=== PATIENT | male | born 1940 | race Caucasian/White ===

== ENCOUNTER 2017-03-27 19:03 | Inpatient (IN) | payer MEDICARE, OTHER ==
[2017-03-28] MEDS: SODIUM CHLORIDE 0.9% 1L BAG IV* (00:15)
[2017-03-28 00:18] LABS: ADD MAN DIFF? NO
[2017-03-28 00:20] LABS: WHITE BLOOD COUNT 11.8 10^3/ul (4.8-10.8)
[2017-03-28 00:20] LABS: BASOPHILS % 0.2 % (0.0-2.0); HEMATOCRIT 35.6 % (42.0-52.0); LYMPHOCYTES % 8.4 % (15.0-51.0); MEAN CORPUSCULAR HEMOGLOBIN 32.3 pg (29.0-33.0); MEAN CORPUSCULAR HGB CONC 33.7 g/dl (32.0-37.0); MEAN PLATELET VOLUME 10.4 fl (7.4-10.4); MONOCYTE # 0.8 10^3/ul (0.3-0.9); MONOCYTES % 6.8 % (0.0-11.0); NEUTROPHIL # 9.9 10^3/ul (1.6-7.5); PLATELET COUNT 120 10^3/UL (140-415); RED BLOOD COUNT 3.71 10^6/ul (4.70-6.10); RED CELL DISTRIBUTION WIDTH 13.2 % (11.5-14.5)
[2017-03-28 00:49] LABS: PARTIAL THROMBOPLASTIN TIME 30.9 Sec (25.0-35.0); PROTIME 14.4 Sec (11.9-14.9); PT RATIO 1.1
[2017-03-28 00:56] LABS: LACTIC ACID 1.9 mmol/L (0.5-2.0)
[2017-03-28 00:58] LABS: ALANINE AMINOTRANSFERASE 30 IU/L (13-69); ALBUMIN 4.3 g/dl (3.3-4.9); ALBUMIN/GLOBULIN RATIO 1.34; ALKALINE PHOSPHATASE 71 IU/L (42-121); ANION GAP 16 (8-16); ASPARTATE AMINO TRANSFERASE 53 IU/L (15-46); BILIRUBIN,INDIRECT 0.6 mg/dl (0-1.1); BILIRUBIN,TOTAL 0.6 mg/dl (0.2-1.3); BLOOD UREA NITROGEN 27 mg/dl (7-20); CALCIUM 9.4 mg/dl (8.4-10.2); CARBON DIOXIDE 23 mmol/L (21-31); CHLORIDE 101 mmol/L (97-110); CREATININE 1.51 mg/dl (0.61-1.24); GLUCOSE 220 mg/dl (70-220); POTASSIUM 4.2 mmol/L (3.5-5.1); SODIUM 136 mmol/L (135-144); TOTAL PROTEIN 7.5 g/dl (6.1-8.1)
[2017-03-28 02:24] LABS: LACTIC ACID 1.1 mmol/L (0.5-2.0)
[2017-03-28] MEDS ORDERED: ALBUTEROL/IPRATROPIUM (NEB) 3 ML AMP HHN (05:00)
[2017-03-28] MEDS ORDERED: morphine 2 MG INJ IV (05:00)
[2017-03-28] MEDS ORDERED: NACL 0.9% 3 ML SYG IV (05:00)
[2017-03-28] MEDS ORDERED: DOCUSATE SODIUM 100 MG CAP PO (05:00)
[2017-03-28] MEDS ORDERED: ONDANSETRON 4 MG INJ IV (05:00)
[2017-03-28] MEDS ORDERED: NITROGLYCERIN (SL) 0.4 MG TAB SL (05:00)
[2017-03-28] MEDS ORDERED: GLUCAGON 1 MG INJ IM (06:00)
[2017-03-28] MEDS ORDERED: DEXTROSE 50% 50 ML SYRINGE IV ×2 (06:00)
[2017-03-28] MEDS ORDERED: GLUCOSE GEL 15 GRAM TUBE PO ×2 (06:00)
[2017-03-28] MEDS ORDERED: GLUCOSE GEL 15 GRAM TUBE BUCCAL (06:00)
[2017-03-28 06:37] LABS: ADD MAN DIFF? NO
[2017-03-28 06:48] LABS: WHITE BLOOD COUNT 9.6 10^3/ul (4.8-10.8)
[2017-03-28 06:48] LABS: BASOPHILS % 0.2 % (0.0-2.0); EOSINOPHILS % 0.1 % (0.0-7.0); HEMATOCRIT 33.2 % (42.0-52.0); HEMOGLOBIN 11.1 g/dl (14.0-18.0); LYMPHOCYTES % 9.9 % (15.0-51.0); MEAN CORPUSCULAR HEMOGLOBIN 32.1 pg (29.0-33.0); MEAN CORPUSCULAR HGB CONC 33.4 g/dl (32.0-37.0); MEAN PLATELET VOLUME 11.1 fl (7.4-10.4); MONOCYTE # 0.8 10^3/ul (0.3-0.9); MONOCYTES % 8.5 % (0.0-11.0); NEUTROPHIL # 7.8 10^3/ul (1.6-7.5); NEUTROPHILS % 80.7 % (39.0-77.0); PLATELET COUNT 108 10^3/UL (140-415); RED BLOOD COUNT 3.46 10^6/ul (4.70-6.10); RED CELL DISTRIBUTION WIDTH 13.3 % (11.5-14.5)
[2017-03-28 07:04] LABS: LACTIC ACID 1.3 mmol/L (0.5-2.0)
[2017-03-28 07:07] LABS: ALANINE AMINOTRANSFERASE 29 IU/L (13-69); ALBUMIN 3.6 g/dl (3.3-4.9); ALBUMIN/GLOBULIN RATIO 1.16; ALKALINE PHOSPHATASE 60 IU/L (42-121); ANION GAP 14 (8-16); ASPARTATE AMINO TRANSFERASE 58 IU/L (15-46); BILIRUBIN,INDIRECT 0.6 mg/dl (0-1.1); BILIRUBIN,TOTAL 0.6 mg/dl (0.2-1.3); BLOOD UREA NITROGEN 24 mg/dl (7-20); CARBON DIOXIDE 23 mmol/L (21-31); CHLORIDE 105 mmol/L (97-110); CHOL/HDL RATIO 3.4 RATIO; CHOLESTEROL 131 mg/dl (100-200); CREATINE KINASE 1463 IU/L (23-200); CREATININE 1.41 mg/dl (0.61-1.24); GLUCOSE 183 mg/dl (70-220); HDL CHOLESTEROL 38 mg/dl (31-75); LDL CHOLESTEROL,CALCULATED 65 mg/dl; MAGNESIUM 1.8 mg/dl (1.7-2.5); POTASSIUM 3.9 mmol/L (3.5-5.1); SODIUM 138 mmol/L (135-144); TOTAL PROTEIN 6.7 g/dl (6.1-8.1); TRIGLYCERIDES 139 mg/dl (0-149)
[2017-03-28 07:20] LABS: CK INDEX 0.2
[2017-03-28 07:21] LABS: CK-MB 3.46 ng/ml (0.0-2.4); TROPONIN-I 0.175 ng/ml (0.00-0.12)
[2017-03-28] MEDS: POLYETHYLENE GLYCOL 17 GM PACKET PO (08:37)
[2017-03-28 08:44] LABS: HEMOGLOBIN A1C 7.2 % (0-5.9)
[2017-03-28] MEDS: HEPARIN 5,000 UNIT/0.5 ML VIAL SC ×2 (09:23→20:40)
[2017-03-28] MEDS: RANOLAZINE (SR) 500 MG TAB PO ×2 (09:24→20:18)
[2017-03-28] MEDS: ISOSORBIDE MONONITRATE(SR)60 MG TAB PO (09:24)
[2017-03-28] MEDS: ALFUZOSIN (SR) 10 MG TAB PO (09:25)
[2017-03-28] MEDS: METOPROLOL 50 MG TAB PO (09:25)
[2017-03-28] MEDS: ASPIRIN (EC) 81 MG TAB PO (09:26)
[2017-03-28] MEDS: LINAGLIPTIN 5 MG TABLET PO (09:26)
[2017-03-28] MEDS: MAGNESIUM OXIDE 400 MG TAB PO (09:27)
[2017-03-28] MEDS: DICLOFENAC (EC) 25 MG TAB PO ×2 (09:27→20:18)
[2017-03-28 11:09] LABS: CREATINE KINASE 1174 IU/L (23-200)
[2017-03-28 11:22] LABS: CK INDEX 0.2; TROPONIN-I 0.116 ng/ml (0.00-0.12)
[2017-03-28 11:27] LABS: CK-MB 1.85 ng/ml (0.0-2.4)
[2017-03-28] MEDS: ATORVASTATIN 20 MG TAB PO (20:17)
[2017-03-28] MEDS: ACETAMINOPHEN 325 MG TAB PO (20:18)
[2017-03-28] MEDS: OXYBUTYNIN (XL) 5 MG TAB PO (20:24)
[2017-03-28] MEDS: FUROSEMIDE 20 MG INJ IV (20:24)
[2017-03-28] MEDS: INSULIN ASPART [NOVOLOG] 3 ML PEN SC (20:39)
[2017-03-29] MEDS: ACCU-CHEK XX (01:58)
[2017-03-29] MEDS: METOPROLOL 50 MG TAB PO ×2 (08:21→20:53)
[2017-03-29] MEDS: RANOLAZINE (SR) 500 MG TAB PO ×2 (08:22→20:53)
[2017-03-29] MEDS: MAGNESIUM OXIDE 400 MG TAB PO (08:22)
[2017-03-29] MEDS: DICLOFENAC (EC) 25 MG TAB PO ×2 (08:22→20:52)
[2017-03-29] MEDS: LINAGLIPTIN 5 MG TABLET PO (08:22)
[2017-03-29] MEDS: ASPIRIN (EC) 81 MG TAB PO (08:22)
[2017-03-29] MEDS: POLYETHYLENE GLYCOL 17 GM PACKET PO (08:23)
[2017-03-29] MEDS: ALFUZOSIN (SR) 10 MG TAB PO (08:23)
[2017-03-29] MEDS: ISOSORBIDE MONONITRATE(SR)60 MG TAB PO (08:23)
[2017-03-29 08:26] LABS: ADD MAN DIFF? NO
[2017-03-29 08:33] LABS: WHITE BLOOD COUNT 6.2 10^3/ul (4.8-10.8)
[2017-03-29 08:33] LABS: ABNORMAL IP MESSAGE 1; BASOPHILS % 0.3 % (0.0-2.0); EOSINOPHILS % 0.5 % (0.0-7.0); HEMATOCRIT 33.6 % (42.0-52.0); HEMOGLOBIN 11.1 g/dl (14.0-18.0); LYMPHOCYTES # 0.5 10^3/ul (0.8-2.9); MEAN CORPUSCULAR HEMOGLOBIN 31.8 pg (29.0-33.0); MEAN CORPUSCULAR VOLUME 96.3 fl (82.0-101.0); MEAN PLATELET VOLUME 10.7 fl (7.4-10.4); MONOCYTE # 0.5 10^3/ul (0.3-0.9); MONOCYTES % 7.7 % (0.0-11.0); NEUTROPHIL # 5.2 10^3/ul (1.6-7.5); NEUTROPHILS % 82.9 % (39.0-77.0); PLATELET COUNT 96 10^3/UL (140-415); POSITIVE DIFF @See below; RED BLOOD COUNT 3.49 10^6/ul (4.70-6.10); RED CELL DISTRIBUTION WIDTH 13.4 % (11.5-14.5)
[2017-03-29] MEDS: INSULIN ASPART [NOVOLOG] 3 ML PEN SC ×4 (08:39→20:55)
[2017-03-29] MEDS: HEPARIN 5,000 UNIT/0.5 ML VIAL SC ×2 (08:40→20:54)
[2017-03-29 08:44] LABS: URIC ACID 5.6 mg/dl (3.1-7.9)
[2017-03-29 08:44] LABS: CREATINE KINASE 625 IU/L (23-200)
[2017-03-29 08:46] LABS: ANION GAP 17 (8-16); BLOOD UREA NITROGEN 36 mg/dl (7-20); CALCIUM 8.8 mg/dl (8.4-10.2); CARBON DIOXIDE 22 mmol/L (21-31); CHLORIDE 106 mmol/L (97-110); CREATININE 2.12 mg/dl (0.61-1.24); GLUCOSE 168 mg/dl (70-220); PHOSPHORUS 3.6 mg/dl (2.5-4.9); POTASSIUM 3.9 mmol/L (3.5-5.1); SODIUM 141 mmol/L (135-144)
[2017-03-29] MEDS: ACETAMINOPHEN 325 MG TAB PO ×2 (16:12→21:37)
[2017-03-29 18:10] LABS: CREATININE,URINE RANDOM 271.59 mg/dl (20-370); PROTEIN/CREAT RATIO 0.37 RATIO
[2017-03-29 18:21] LABS: SODIUM,URINE RANDOM 42 mmol/L (30-90)
[2017-03-29 18:23] LABS: ADD UMIC YES; UR ASCORBIC ACID NEGATIVE (NEGATIVE); UR BACTERIA FEW /HPF (NONE SEEN); UR BILIRUBIN (Dip) NEGATIVE (NEGATIVE); UR BLOOD (Dip) NEGATIVE (NEGATIVE); UR CLARITY CLOUDY (CLEAR); UR COLOR AMBER (YELLOW); UR GLUCOSE (Dip) 1+ mg/dL (NEGATIVE); UR KETONES (Dip) NEGATIVE (NEGATIVE); UR LEUKOCYTE ESTERASE (Dip) 2+ Leu/ul (NEGATIVE); UR MUCUS FEW /HPF (NONE SEEN); UR NITRITE (Dip) NEGATIVE (NEGATIVE); UR RBC 5 /HPF (0-5); UR SPECIFIC GRAVITY (Dip) 1.026 (1.003-1.030); UR TOTAL PROTEIN (Dip) 2+ mg/dl (NEGATIVE); UR UROBILINOGEN (Dip) 1+ mg/dL (NEGATIVE); UR WBC > 182 /HPF (0-5)
[2017-03-29] MEDS: ATORVASTATIN 20 MG TAB PO (20:52)
[2017-03-29] MEDS: OXYBUTYNIN (XL) 5 MG TAB PO (20:53)
[2017-03-30] MEDS: ACCU-CHEK XX (02:31)
[2017-03-30] MEDS: MAGNESIUM OXIDE 400 MG TAB PO (08:44)
[2017-03-30] MEDS: ALFUZOSIN (SR) 10 MG TAB PO (08:44)
[2017-03-30] MEDS: ASPIRIN (EC) 81 MG TAB PO (08:44)
[2017-03-30] MEDS: RANOLAZINE (SR) 500 MG TAB PO ×2 (08:44→20:35)
[2017-03-30] MEDS: LINAGLIPTIN 5 MG TABLET PO (08:44)
[2017-03-30] MEDS: METOPROLOL 50 MG TAB PO ×2 (08:46→20:36)
[2017-03-30] MEDS: POLYETHYLENE GLYCOL 17 GM PACKET PO (08:46)
[2017-03-30] MEDS: ISOSORBIDE MONONITRATE(SR)60 MG TAB PO (08:46)
[2017-03-30] MEDS: INSULIN ASPART [NOVOLOG] 3 ML PEN SC ×4 (08:47→20:48)
[2017-03-30] MEDS: HEPARIN 5,000 UNIT/0.5 ML VIAL SC ×2 (08:48→20:48)
[2017-03-30] MEDS: ACETAMINOPHEN 325 MG TAB PO (08:55)
[2017-03-30] MEDS: DICLOFENAC (EC) 25 MG TAB PO ×2 (08:58→20:35)
[2017-03-30 10:53] LABS: ANION GAP 14 (8-16); BLOOD UREA NITROGEN 41 mg/dl (7-20); CALCIUM 8.6 mg/dl (8.4-10.2); CARBON DIOXIDE 22 mmol/L (21-31); CHLORIDE 106 mmol/L (97-110); CREATININE 2.03 mg/dl (0.61-1.24); GLUCOSE 198 mg/dl (70-220); SODIUM 138 mmol/L (135-144)
[2017-03-30] MEDS: CEFTRIAXONE 2 GM/50 ML (PMX) 50 ML IVPB (12:26)
[2017-03-30] MEDS: SOD CHLORIDE 0.9% 1,000 ML IV (18:49)
[2017-03-30] MEDS: OXYBUTYNIN (XL) 5 MG TAB PO (20:35)
[2017-03-30] MEDS: ATORVASTATIN 20 MG TAB PO (20:35)
[2017-03-31] MEDS: ACCU-CHEK XX (02:00)
[2017-03-31] MEDS: ACETAMINOPHEN 325 MG TAB PO ×2 (02:09→21:17)
[2017-03-31 08:07] LABS: ADD MAN DIFF? NO
[2017-03-31 08:09] LABS: BASOPHILS % 0.2 % (0.0-2.0); EOSINOPHILS # 0.1 10^3/ul (0.0-0.5); HEMATOCRIT 30.5 % (42.0-52.0); HEMOGLOBIN 10.3 g/dl (14.0-18.0); LYMPHOCYTES # 0.7 10^3/ul (0.8-2.9); LYMPHOCYTES % 15.5 % (15.0-51.0); MEAN CORPUSCULAR HEMOGLOBIN 31.8 pg (29.0-33.0); MEAN CORPUSCULAR HGB CONC 33.8 g/dl (32.0-37.0); MEAN CORPUSCULAR VOLUME 94.1 fl (82.0-101.0); MEAN PLATELET VOLUME 10.4 fl (7.4-10.4); MONOCYTE # 0.4 10^3/ul (0.3-0.9); MONOCYTES % 8.2 % (0.0-11.0); NEUTROPHIL # 3.6 10^3/ul (1.6-7.5); NEUTROPHILS % 74.3 % (39.0-77.0); PLATELET COUNT 108 10^3/UL (140-415); RED BLOOD COUNT 3.24 10^6/ul (4.70-6.10); RED CELL DISTRIBUTION WIDTH 13.2 % (11.5-14.5)
[2017-03-31 08:09] LABS: WHITE BLOOD COUNT 4.8 10^3/ul (4.8-10.8)
[2017-03-31 08:32] LABS: ANION GAP 12 (8-16); BLOOD UREA NITROGEN 34 mg/dl (7-20); CALCIUM 8.7 mg/dl (8.4-10.2); CARBON DIOXIDE 23 mmol/L (21-31); CHLORIDE 110 mmol/L (97-110); CREATININE 1.71 mg/dl (0.61-1.24); GLUCOSE 199 mg/dl (70-220); POTASSIUM 4.3 mmol/L (3.5-5.1); SODIUM 141 mmol/L (135-144)
[2017-03-31] MEDS: DICLOFENAC (EC) 25 MG TAB PO ×2 (08:33→21:15)
[2017-03-31] MEDS: POLYETHYLENE GLYCOL 17 GM PACKET PO (08:33)
[2017-03-31] MEDS: INSULIN ASPART [NOVOLOG] 3 ML PEN SC ×4 (08:39→21:00)
[2017-03-31] MEDS: HEPARIN 5,000 UNIT/0.5 ML VIAL SC ×2 (08:40→21:23)
[2017-03-31] MEDS: LINAGLIPTIN 5 MG TABLET PO (08:40)
[2017-03-31] MEDS: ISOSORBIDE MONONITRATE(SR)60 MG TAB PO (08:40)
[2017-03-31] MEDS: ALFUZOSIN (SR) 10 MG TAB PO (08:40)
[2017-03-31] MEDS: MAGNESIUM OXIDE 400 MG TAB PO (08:40)
[2017-03-31] MEDS: ASPIRIN (EC) 81 MG TAB PO (08:41)
[2017-03-31] MEDS: METOPROLOL 50 MG TAB PO ×2 (08:41→21:17)
[2017-03-31] MEDS: RANOLAZINE (SR) 500 MG TAB PO ×2 (08:44→21:15)
[2017-03-31] MEDS: CEFTRIAXONE 2 GM/50 ML (PMX) 50 ML IVPB (12:20)
[2017-03-31] MEDS: ATORVASTATIN 20 MG TAB PO (21:16)
[2017-03-31] MEDS: LORAZEPAM 1 MG TAB PO (21:17)
[2017-03-31] MEDS: OXYBUTYNIN (XL) 5 MG TAB PO (21:32)
[2017-04-01] MEDS: ACCU-CHEK XX ×2 (02:00→22:16)
[2017-04-01] MEDS: LEVOFLOXACIN 500 MG TAB PO (06:01)
[2017-04-01 07:12] LABS: ADD MAN DIFF? NO
[2017-04-01 07:14] LABS: BASOPHILS % 0.4 % (0.0-2.0); EOSINOPHILS # 0.1 10^3/ul (0.0-0.5); EOSINOPHILS % 1.3 % (0.0-7.0); HEMATOCRIT 31.8 % (42.0-52.0); HEMOGLOBIN 10.7 g/dl (14.0-18.0); LYMPHOCYTES # 1.1 10^3/ul (0.8-2.9); LYMPHOCYTES % 20.4 % (15.0-51.0); MEAN CORPUSCULAR HEMOGLOBIN 31.5 pg (29.0-33.0); MEAN CORPUSCULAR HGB CONC 33.6 g/dl (32.0-37.0); MEAN CORPUSCULAR VOLUME 93.5 fl (82.0-101.0); MEAN PLATELET VOLUME 10.9 fl (7.4-10.4); MONOCYTE # 0.5 10^3/ul (0.3-0.9); MONOCYTES % 8.5 % (0.0-11.0); NEUTROPHIL # 3.8 10^3/ul (1.6-7.5); NEUTROPHILS % 68.5 % (39.0-77.0); PLATELET COUNT 134 10^3/UL (140-415); RED CELL DISTRIBUTION WIDTH 13.3 % (11.5-14.5)
[2017-04-01 07:14] LABS: WHITE BLOOD COUNT 5.5 10^3/ul (4.8-10.8)
[2017-04-01 07:44] LABS: INR 1.04; PROTIME 13.7 Sec (11.9-14.9); PT RATIO 1.1
[2017-04-01 07:51] LABS: ANION GAP 14 (8-16); BLOOD UREA NITROGEN 31 mg/dl (7-20); CALCIUM 9.1 mg/dl (8.4-10.2); CARBON DIOXIDE 24 mmol/L (21-31); CHLORIDE 107 mmol/L (97-110); GLUCOSE 205 mg/dl (70-220); POTASSIUM 4.3 mmol/L (3.5-5.1); SODIUM 141 mmol/L (135-144)
[2017-04-01] MEDS: INSULIN ASPART [NOVOLOG] 3 ML PEN SC ×4 (08:08→22:15)
[2017-04-01] MEDS: MAGNESIUM OXIDE 400 MG TAB PO (08:48)
[2017-04-01] MEDS: METOPROLOL 50 MG TAB PO ×2 (08:49→22:01)
[2017-04-01] MEDS: ISOSORBIDE MONONITRATE(SR)60 MG TAB PO (08:49)
[2017-04-01] MEDS: AMLODIPINE 5 MG TAB PO (08:49)
[2017-04-01] MEDS: ALFUZOSIN (SR) 10 MG TAB PO (08:49)
[2017-04-01] MEDS: LINAGLIPTIN 5 MG TABLET PO (08:49)
[2017-04-01] MEDS: ASPIRIN (EC) 81 MG TAB PO (08:49)
[2017-04-01] MEDS: RANOLAZINE (SR) 500 MG TAB PO ×2 (08:49→21:59)
[2017-04-01] MEDS: HEPARIN 5,000 UNIT/0.5 ML VIAL SC ×2 (08:50→22:11)
[2017-04-01] MEDS: POLYETHYLENE GLYCOL 17 GM PACKET PO (08:50)
[2017-04-01] MEDS ORDERED: AMLODIPINE 5 MG TAB PO (09:00)
[2017-04-01 09:01] LABS: FOLATE 4.4 ng/ml (2.8-20.0)
[2017-04-01] MEDS: DICLOFENAC (EC) 25 MG TAB PO ×2 (09:27→22:00)
[2017-04-01 16:44] LABS: RAPID PLASMA REAGIN NONREACTIVE (NR)
[2017-04-01] MEDS: ATORVASTATIN 20 MG TAB PO (22:00)
[2017-04-01] MEDS: OXYBUTYNIN (XL) 5 MG TAB PO (22:01)
[2017-04-01] MEDS: ACETAMINOPHEN 325 MG TAB PO (22:11)
[2017-04-02] MEDS: LEVOFLOXACIN 500 MG TAB PO (05:52)
[2017-04-02 06:15] LABS: HEMATOCRIT 32.1 % (42.0-52.0); HEMOGLOBIN 11.1 g/dl (14.0-18.0); MEAN CORPUSCULAR HEMOGLOBIN 32.1 pg (29.0-33.0); MEAN CORPUSCULAR HGB CONC 34.6 g/dl (32.0-37.0); MEAN CORPUSCULAR VOLUME 92.8 fl (82.0-101.0); MEAN PLATELET VOLUME 11.1 fl (7.4-10.4); PLATELET COUNT 163 10^3/UL (140-415); POSITIVE DIFF @See below; RED BLOOD COUNT 3.46 10^6/ul (4.70-6.10); RED CELL DISTRIBUTION WIDTH 13.1 % (11.5-14.5)
[2017-04-02 06:15] LABS: WHITE BLOOD COUNT 4.6 10^3/ul (4.8-10.8)
[2017-04-02 06:41] LABS: ANION GAP 15 (8-16); BLOOD UREA NITROGEN 30 mg/dl (7-20); CALCIUM 9.6 mg/dl (8.4-10.2); CARBON DIOXIDE 24 mmol/L (21-31); CHLORIDE 105 mmol/L (97-110); CREATININE 1.48 mg/dl (0.61-1.24); GLUCOSE 168 mg/dl (70-220); POTASSIUM 4.4 mmol/L (3.5-5.1); SODIUM 140 mmol/L (135-144)
[2017-04-02 06:54] LABS: ADD MAN DIFF? YES
[2017-04-02] MEDS: INSULIN ASPART [NOVOLOG] 3 ML PEN SC ×4 (07:43→21:07)
[2017-04-02 08:33] LABS: BAND NEUTROPHILS #M 0.2 10^3/ul (0.0-0.6); BAND NEUTROPHILS % (M) 6 % (0-4); EOSINOPHILS % (M) 1 % (0-7); LYMPHOCYTES #M 1.3 10^3/ul (0.8-2.9); LYMPHOCYTES % (M) 29 % (15-51); MONOCYTE #M 0.2 10^3/ul (0.3-0.9); MONOCYTES % (M) 5 % (0-11); PLATELET ESTIMATE NORMAL; POLYCHROMASIA 2+ (0-0); REACTIVE LYMPHOCYTES #M 0.1 10^3/ul (0.0-0.0); REACTIVE LYMPHOCYTES% (M) 3 % (0-0); SEG NEUT #M 2.6 10^3/ul (1.6-7.5); SEGMENTED NEUTROPHILS (M) % 56 % (39-77); SMUDGE%M 10 % (0-0)
[2017-04-02] MEDS: ASPIRIN (EC) 81 MG TAB PO (08:56)
[2017-04-02] MEDS: ALFUZOSIN (SR) 10 MG TAB PO (08:56)
[2017-04-02] MEDS: METOPROLOL 50 MG TAB PO ×2 (08:57→21:03)
[2017-04-02] MEDS: ISOSORBIDE MONONITRATE(SR)60 MG TAB PO (08:57)
[2017-04-02] MEDS: MAGNESIUM OXIDE 400 MG TAB PO (08:58)
[2017-04-02] MEDS: AMLODIPINE 5 MG TAB PO (08:58)
[2017-04-02] MEDS: DICLOFENAC (EC) 25 MG TAB PO ×2 (08:58→21:02)
[2017-04-02] MEDS: RANOLAZINE (SR) 500 MG TAB PO ×2 (08:58→21:02)
[2017-04-02] MEDS: LINAGLIPTIN 5 MG TABLET PO (08:58)
[2017-04-02] MEDS: POLYETHYLENE GLYCOL 17 GM PACKET PO (08:58)
[2017-04-02] MEDS: HEPARIN 5,000 UNIT/0.5 ML VIAL SC ×2 (09:00→21:04)
[2017-04-02] MEDS: ACETAMINOPHEN 325 MG TAB PO (15:09)
[2017-04-02] MEDS: ATORVASTATIN 20 MG TAB PO (21:02)
[2017-04-02] MEDS: OXYBUTYNIN (XL) 5 MG TAB PO (21:02)
[2017-04-03] MEDS: ACETAMINOPHEN 325 MG TAB PO (00:16)
[2017-04-03] MEDS: ACCU-CHEK XX (02:00)
[2017-04-03] MEDS: LEVOFLOXACIN 500 MG TAB PO (06:27)
[2017-04-03 07:40] LABS: ADD MAN DIFF? NO
[2017-04-03 07:46] LABS: BASOPHILS % 0.6 % (0.0-2.0); EOSINOPHILS # 0.1 10^3/ul (0.0-0.5); EOSINOPHILS % 2.3 % (0.0-7.0); HEMATOCRIT 31.5 % (42.0-52.0); HEMOGLOBIN 10.7 g/dl (14.0-18.0); LYMPHOCYTES # 1.5 10^3/ul (0.8-2.9); LYMPHOCYTES % 29.3 % (15.0-51.0); MEAN CORPUSCULAR HEMOGLOBIN 31.6 pg (29.0-33.0); MEAN CORPUSCULAR VOLUME 92.9 fl (82.0-101.0); MEAN PLATELET VOLUME 10.6 fl (7.4-10.4); MONOCYTE # 0.4 10^3/ul (0.3-0.9); MONOCYTES % 7.8 % (0.0-11.0); NEUTROPHILS % 57.7 % (39.0-77.0); PLATELET COUNT 211 10^3/UL (140-415); POSITIVE DIFF @See below; RED BLOOD COUNT 3.39 10^6/ul (4.70-6.10); RED CELL DISTRIBUTION WIDTH 12.8 % (11.5-14.5)
[2017-04-03 07:46] LABS: WHITE BLOOD COUNT 5.2 10^3/ul (4.8-10.8)
[2017-04-03] MEDS: INSULIN ASPART [NOVOLOG] 3 ML PEN SC ×2 (07:51→11:54)
[2017-04-03 08:04] LABS: ANION GAP 14 (8-16); BLOOD UREA NITROGEN 34 mg/dl (7-20); CALCIUM 9.4 mg/dl (8.4-10.2); CARBON DIOXIDE 25 mmol/L (21-31); CHLORIDE 105 mmol/L (97-110); CREATININE 1.71 mg/dl (0.61-1.24); GLUCOSE 188 mg/dl (70-220); POTASSIUM 4.4 mmol/L (3.5-5.1); SODIUM 140 mmol/L (135-144)
[2017-04-03] MEDS: ALFUZOSIN (SR) 10 MG TAB PO (08:42)
[2017-04-03] MEDS: DICLOFENAC (EC) 25 MG TAB PO (08:42)
[2017-04-03] MEDS: MAGNESIUM OXIDE 400 MG TAB PO (08:42)
[2017-04-03] MEDS: LINAGLIPTIN 5 MG TABLET PO (08:42)
[2017-04-03] MEDS: RANOLAZINE (SR) 500 MG TAB PO (08:43)
[2017-04-03] MEDS: AMLODIPINE 5 MG TAB PO (08:44)
[2017-04-03] MEDS: METOPROLOL 50 MG TAB PO (08:44)
[2017-04-03] MEDS: ISOSORBIDE MONONITRATE(SR)60 MG TAB PO (08:45)
[2017-04-03] MEDS: POLYETHYLENE GLYCOL 17 GM PACKET PO (08:46)
[2017-04-03] MEDS: HEPARIN 5,000 UNIT/0.5 ML VIAL SC (08:46)
[2017-04-03] MEDS: ASPIRIN (EC) 81 MG TAB PO (08:47)
== END 2017-04-03 16:33 | DRG 291 ==
LOC: E/R 19:03 → MS4 03-28 01:40
DX: I13.0 Hypertensive heart and chronic kidney disease with heart failure and stage 1 through stage 4 chronic kidney disease, or unspecified chronic kidney disease (principal); I50.43 Acute on chronic combined systolic (congestive) and diastolic (congestive) heart failure; G93.40 Encephalopathy, unspecified; N17.9 Acute kidney failure, unspecified; I24.8 Other forms of acute ischemic heart disease; N39.0 Urinary tract infection, site not specified; I42.9 Cardiomyopathy, unspecified; D64.9 Anemia, unspecified; I65.29 Occlusion and stenosis of unspecified carotid artery; E78.00 Pure hypercholesterolemia, unspecified; E11.22 Type 2 diabetes mellitus with diabetic chronic kidney disease; N28.1 Cyst of kidney, acquired; N18.2 Chronic kidney disease, stage 2 (mild); I25.10 Atherosclerotic heart disease of native coronary artery without angina pectoris; R29.6 Repeated falls; Z91.81 History of falling; Z79.82 Long term (current) use of aspirin; Z79.84 Long term (current) use of oral hypoglycemic drugs; Z95.1 Presence of aortocoronary bypass graft; Z95.0 Presence of cardiac pacemaker; Z87.891 Personal history of nicotine dependence; Z85.51 Personal history of malignant neoplasm of bladder
CPT/HCPCS: 36415; 70450; 71045; 76775; 80048; 80053; 80061; 81001; 81003; 82550; 82553; 82570; 82607; 82746; 82962; 83036; 83605; 83735; 84100; 84300; 84443; 84484; 84560; 85025; 85610; 85730; 86592; 87040; 87086; 89190; 93005; 93306; 93880; 96374; 97110; 97116; 97162; 99291-25; J1940

== ENCOUNTER 2017-05-13 12:35 | Emergency (ER) | payer SELFPAY, MEDICARE | END 2017-05-13 15:49 | disposition left against medical advice (07) | LOC: E/R 12:35 | DX: Z53.21 Procedure and treatment not carried out due to patient leaving prior to being seen by health care provider (principal) ==